=== PATIENT | female | born 1975 | race African-American/Black ===

== ENCOUNTER 2018-09-11 09:01 | Emergency (ER) | payer SELFPAY ==
[~2018-09-11] VITALS: Ht 167.6 cm; Wt 136.1 kg
--- OUTSIDE RECORDS SUMMARY | 2018-09-11 09:04 | XMS REPORT ---
Author Author Admin, [place] Organization [facility] Address 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 Conditions or Problems Problem Name Problem Code Onset Date Status Entry Date Provider Comment Standard Description Annotate Depression 311 Active Michelle Cleary MD Depressive disorder, not elsewhere classified MORBID OBESITY Active Michelle Cleary MD Morbid obesity HYPERCALCEMIA 275.42 Active Michelle Cleary MD Hypercalcemia Hepatitis A immunity V05.8 Active Michelle Cleary MD Need for prophylactic vaccination and inoculation against other specified disease Hyperlipidemia 272.4 Active Michelle Cleary MD Other and unspecified hyperlipidemia Immunization update V15.9 Active Michelle Cleary MD Unspecified personal history presenting hazards to health HIV infection 042 Active Pankaj Ny Human immunodeficiency virus [HIV] disease Medication List Medication Instructions Start Date Stop Date Generic Name [facility] Status Provider Patient Instruction TIVICAY 50 MG ORAL TABLET 1 By Mouth once a day DOLUTEGRAVIR SODIUM 52712550395 Active Michelle Cleary MD Active TRUVADA 200-300 MG ORAL TABLET 1 by mouth daily EMTRICITABINE-TENOFOVIR 70484495875 Active Michelle Cleary MD Active Diagnostic Results Date Name Value Unit Range Description Lab Report: GenoSure Archive(SM), TSH+T4+T3H, PTH, Intact - Chemistry thyroid stimulating hormone, serum 0.824 u[iU]/mL 0.450-4.500 Lab Report: CD4/CD8 Ratio Profile, Comp. Metabolic Panel (14), Lipid Fountain ... - Chemistry very low density lipoproteins 36 mg/dL 5-40 hepatitis B surface antigen Negative Negative chloride, serum 106 mmol/L 96-106 Lab Report: CD4/CD8 Ratio Profile, Comp. Metabolic Panel (14), [facility] Fountain ... - Microbiology hepatitis A antibody, total Positive Negative Lab Report: CD4/CD8 Ratio Profile, Comp. Metabolic Panel (14), Lipid Fountain ... - Chemistry urea nitrogen, blood 6 mg/dL 6-24 Lab Report: CD4/CD8 Ratio Profile, Comp. Metabolic Panel (14), Lipid Fountain ... - Serology HIV-1/HIV-2 Ab, serum Positive Negative Lab Report: GenoSure Archive(SM), TSH+T4+T3H, PTH, Intact - Chemistry parathormone, serum 97 pg/mL 15-65 Lab Report: G-6-PD, Quant, Blood and RBC, HLA [id number] Test, QuantiFERON TB ... - Hematology Quantiferon Gold TB blood test for tuberculosis screening Negative Negative Lab Report: CD4/CD8 Ratio Profile, Comp. Metabolic Panel (14), Lip[facility] Fountain ... - Hematology mean corpuscular hemoglobin concentration, RBC 30.4 G/DL % 31.5-35.7 erythrocyte (RBC) count 4.30 X10E6/UL 10*6/mm3 3.77-5.28 Lab Report: CD4/CD8 Ratio Profile, Comp. Metabolic Panel (14), Lipid Fountain ... - Serology hepatitis C antibody, serum 0.1 0.0-0.9 Lab Report: CD4/CD8 Ratio Profile, Comp. Metabolic Panel (14), Lipid Fountain ... - Chemistry absolute CD8 [phone] 3385/10/25 Absolute Neutrophils 2.4 X10E3/UL 10*3/uL 1.4-7.0 LDL cholesterol, serum 94 mg/dL 0-99 urea nitrogen/creatinine ratio, serum 8 9-23 Lab Report: CD4/CD8 Ratio Profile, Comp. Metabolic Panel (14), Lipid Fountain ... - Hematology mean corpuscular volume, RBC 66 fL 79-97 Lab Report: CD4/CD8 Ratio Profile, Comp. Metabolic Panel (14), Lipid Fountain ... - Chemistry HDL cholesterol, serum 34 mg/dL >39 Lab Report: CD4/CD8 Ratio Profile, Comp. Metabolic Panel (14), Lipid Fountain ... - Hematology monocytes as percent of blood leukocytes 11 % Not Estab. Lab Report: CD4/CD8 Ratio Profile, Comp. Metabolic Panel (14), Lipid Fountain ... - Chemistry creatinine, serum 0.79 mg/dL 0.57-1.00 albumin/globulin ratio, serum 1.0 1.2-2.2 cholesterol, serum 164 mg/dL 027-382 2155/10/25 bilirubin, serum, total <0.2 mg/dL mg/dL 0.0-1.2 Lab Report: CD4/CD8 Ratio Profile, Comp. Metabolic Panel (14), Lipid Fountain ... - Hematology Eosinophil Absolute Count 0.5 X10E3/UL 10*3/uL 0.0-0.4 Lab Report: Chlamydia/GC Amplification - Lab chlamydia DNA probe Negative Negative Lab Report: CD4/CD8 Ratio Profile, Comp. Metabolic Panel (14), Lipid [facility]ountain ... - Chemistry aspartate aminotransferase (SGOT), serum 18 U/L 0-40 Lab Report: CD4/CD8 Ratio Profile, Comp. Metabolic Panel (14), Lipid Fountain ... - Hematology red blood cell distribution width 20.6 % 12.3-15.4 leukocyte count, blood 4.9 X10E3/UL 10*3/mm3 3.4-10.8 Lab Report: CD4/CD8 Ratio Profile, Comp. Metabolic Panel (14), Lipid Fountain ... - Chemistry potassium, serum 4.1 mmol/L 3.5-5.2 immature granulocytes, percentage of total cells, blood 1 % Not Estab. albumin, serum 3.9 g/dL 3.5-5.5 Lab Report: CD4/CD8 Ratio Profile, Comp. Metabolic Panel (14), Lipid Fountain ... - Hematology lymphocyte count, blood, automated 1.4 X10E3/UL 10*3/mm3 0.7-3.1 hematocrit, blood 28.3 % 34.0-46.6 Lab Report: Chlamydia/GC Amplification - Microbiology Neisseria gonorrhoeae DNA probe Negative Negative Lab Report: CD4/CD8 Ratio Profile, Comp. Metabolic Panel (14), Lipid Fountain ... - Chemistry sodium, serum 141 mmol/L 134-144 Lab Report: CD4/CD8 Ratio Profile, Comp. Metabolic Panel (14), Lipid Fountain ... - Serology toxoplasma gondii antibody, IgG <3.0 0.0-7.1 Lab Report: CD4/CD8 Ratio Profile, Comp. Metabolic Panel (14), Lipid Fountain ... - Hematology neutrophils as percent of blood leukocytes 49 % Not Estab. basophils as percent of blood leukocytes 0 % Not Estab. Lab Report: CD4/CD8 Ratio Profile, Comp. Metabolic Panel (14), Lipid Fountain ... - Serology HIV-1RNA, serum, by PCR, quantitative 460 {Copies}/mL Lab Report: CD4/CD8 Ratio Profile, Comp. Metabolic Panel (14), Lipid Fountain ... - Toxicology HIV-2 antibodies, western blot Indeterminate Negative Lab Report: CD4/CD8 Ratio Profile, Comp. Metabolic Panel (14), Lipid Fountain ... - Serology rapid plasma reagin antibody, serum Non Reactive Non Reactive Lab Report: CD4/CD8 Ratio Profile, Comp. Metabolic Panel (14), Lipid Fountain ... - Chemistry CD4/CD8 ratio 0.59 0.92-3.72 carbon dioxide, venous blood 20 mmol/L 20-29 Lab Report: CD4/CD8 Ratio Profile, Comp. Metabolic Panel (14), Lipid Fountain ... - Serology hepatitis B core antibody, total Negative Negative Lab Report: CD4/CD8 Ratio Profile, Comp. Metabolic Panel (14), Lipid Fountain ... - Chemistry triglyceride, serum, fasting 179 mg/dL 0-149 calcium, serum 11.4 mg/dL 8.7-10.2 alanine aminotransferase (SGPT), serum 12 U/L 0-32 Lab Report: CD4/CD8 Ratio Profile, Comp. Metabolic Panel (14), Lipid Fountain ... - Hematology mean corpuscular hemoglobin, RBC 20.0 pg 26.6-33.0 Lab Report: CD4/CD8 Ratio Profile, Comp. Metabolic Panel (14), Lipid Fountain ... - Chemistry protein, total, serum 7.7 g/dL 6.0-8.5 alkaline phosphatase, serum 99 U/L 39-117 Lab Report: CD4/CD8 Ratio Profile, Comp. Metabolic Panel (14), Lipid Fountain ... - Hematology T-helper cells (CD4) as percent of blood lymphocytes 25.1 % 30.8-58.5 hemoglobin, blood 8.6 g/dL 11.1-15.9 T-suppressor cells (CD8) as percent of blood lymphocytes 42.8 % 12.0-35.5 lymphocytes as percent of blood leukocytes 29 % Not Estab. Lab Report: CD4/CD8 Ratio Profile, Comp. Metabolic Panel (14), Lipid Fountain ... - Genetics/fertility eGFR if 108 mL/min/1.73m2 >59 Lab Report: CD4/CD8 Ratio Profile, Comp. Metabolic Panel (14), Lipid Fountain ... - Hematology basophil count, absolute 0.0 x10E3/uL 0.0-0.2 Lab Report: CD4/CD8 Ratio Profile, Comp. Metabolic Panel (14), Lipid Fountain ... - Chemistry globulin, serum 3.8 1.5-4.5 Estimated Glomerular Filtration Rate (calc) 93 mL/min/1.73m2 >59 Lab Report: CD4/CD8 Ratio Profile, Comp. Metabolic Panel (14), Lipid Fountain ... - Serology hepatitis B surface antibody Non Reactive Lab Report: GenoSure Archive(SM), TSH+T4+T3H, PTH, Intact - Chemistry thyroxine, serum, total 8.6 ug/dL 4.5-12.0 Lab Report: CD4/CD8 Ratio Profile, Comp. Metabolic Panel (14), Lipid Fountain ... - Hematology eosinophils as percent of blood leukocytes 10 % Not Estab. Lab Report: GenoSure Archive(SM), TSH+T4+T3H, PTH, Intact - Chemistry triiodothyronine (T3), serum 150 ng/dL 71-180 Lab Report: CD4/CD8 Ratio Profile, Comp. Metabolic Panel (14), Lipid Fountain ... - Chemistry blood glucose, random 93 mg/dL 65-99 Lab Report: CD4/CD8 Ratio Profile, Comp. Metabolic Panel (14), Lipid Fountain ... 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
== END 2018-09-11 09:56 | disposition left against medical advice (07) ==
LOC: FSED 09:01
DX: R51 Headache (principal)